=== PATIENT | male | born 1990 | race Caucasian/White ===

== ENCOUNTER 2021-04-21 17:32 | Emergency (ER) | payer OTHER ==
[2021-04-21 18:36] LABS: BASOPHIL 0.7 % (0-2); EOSINOPHIL 4.9 % (0-5); HCT 37.3 % (42.0-52.0); HGB 12.6 g/dl (13.2-18.0); LYMPHOCYTE 32.4 % (15-48); MCH 31.9 pg (25.0-31.0); MCHC 33.8 g/dL (32.0-36.0); MCV 94.4 fL (78.0-100.0); MONOCYTE 10.7 % (0-12); MPV 9.8 fL (6.0-9.5); NEUTROPHIL 51.1 % (41-80); NRBC 0; PLT 214 K/uL (150-400); RBC 3.95 M/uL (4.70-6.00); RDW 12.4 % (11.5-14.0); WBC 5.9 K/uL (4.0-10.5)
[2021-04-21 18:39] LABS: BILIRUBIN NEGATIVE (NEGATIVE); BLOOD NEGATIVE Ery/uL (NEGATIVE); CLARITY CLEAR (CLEAR); COLOR YELLOW (YELLOW); GLUCOSE (U) NORMAL (NORMAL); LEUKOCYTES NEGATIVE Leu/uL (NEGATIVE); NITRITE NEGATIVE (NEGATIVE); PROTEIN NEGATIVE (NEGATIVE); SPECIFIC GRAVITY <=1.005 (1.001-1.030)
[2021-04-21 18:55] LABS: ALBUMIN 3.6 g/dL (3.4-5.0); ALKALINE PHOSHATASE 66 U/L (46-116); ALT 34 U/L (16-63); AST 11 U/L (15-37); BILIRUBIN - TOTAL 0.2 mg/dL (0.2-1.0); BUN 10 mg/dL (7-18); BUN/CREAT RATIO (CALC) 11.8 RATIO; CHLORIDE 107 mmol/L (98-107); CO2 (BICARBONATE) 31 mmol/L (21-32); CREATININE 0.85 mg/dL (0.67-1.17); GLOBULIN (CALCULATION) 3.7 g/dL; GLUCOSE 92 mg/dL (74-106); POTASSIUM 4.1 mmol/L (3.5-5.1); TOTAL PROTEIN 7.3 g/dL (6.4-8.2)
[2021-04-21 18:58] LABS: AMPHETAMINES NEGATIVE (NEGATIVE); BARBITURATES NEGATIVE (NEGATIVE); ECSTASY (MDMA) NEGATIVE (NEGATIVE); MARIJUANA (THC) NEGATIVE (NEGATIVE); METHADONE NEGATIVE (NEGATIVE); OPIATES NEGATIVE (NEGATIVE); OXYCODONE NEGATIVE (NEGATIVE)
== END 2021-04-22 05:11 ==
LOC: FER 17:32
PROVIDERS: Physician Assistant
DX: R44.0 Auditory hallucinations (principal); R44.1 Visual hallucinations; F17.210 Nicotine dependence, cigarettes, uncomplicated; Z20.822 Contact with and (suspected) exposure to COVID-19
CPT/HCPCS: 36415; 80053; 80305; 81003; 85025; 99285; G0480; U0002